=== PATIENT | female | born 1945 | race Caucasian/White ===

== ENCOUNTER 2016-07-16 15:03 | Observation (INO) | payer MEDICARE ==
[~2016-07-16] VITALS: Ht 165.1 cm; Wt 66.0 kg
[~2016-07-16 15:03] MED LIST: ADVA250A INH; ASPI81TA82 PO; CALC500T21 OR; LEVO100T60 PO; LISI10TA PO; LOVA1TAB47 PO; METHO500 PO; OXYC1SOL5 PO; PERC5TAB12 PO; PERC7.5T13 PO; PRED20 PO; TAB-TAB PO; VENTAER INH; ZOVI200C24 PO
[2016-07-16 15:04] VITALS: BP 127/85; PULSE 98; RESP 18; TEMP 98.2; O2SAT 100
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
--- NOTE | 2016-07-16 17:24 | RADRPT ---
EXAM DATE/TIME: 07/16/2016 17:16 [facility] COMPARISON: CT ABDOMEN & PELVIS W CONTRAST, January 17, 2016, 20:57. INDICATIONS : Abdominal pain. MEDICAL HISTORY : None. SURGICAL HISTORY : Cholecystectomy. ENCOUNTER: Initial ACUITY: 3 days PAIN SCORE: 10/10 LOCATION: Bilateral lower quadrant abdomen. FINDINGS: Supine and upright views of the abdomen were performed. The abdominal bowel gas pattern is nonspecif ic and unchanged with small amount of air in mid abdominal small bowel loops nondilated. No air flui d levels are seen. No abnormal masses, calcifications, or organomegaly is seen. The visualized lowe r lungs are clear. No evidence of free intraperitoneal gas. The osseous structures are unremarkable . Clips in place prior cholecystectomy CONCLUSION: Prior cholecystectomy. Nonspecific probable benign bowel gas pattern Jeff Marshall MD on July 16, 2016 at 17:22 Board Certified Radiologist. This report was verified electronically.
[2016-07-16 18:34] LABS: AUTOMATED NEUTROPHIL # 5.5 TH/MM3 (1.8-7.7); BASOPHIL % 0.5 % (0.0-2.0); EOSINOPHIL # 0.1 TH/MM3 (0-0.4); HEMATOCRIT 43.4 % (35.0-46.0); HEMO FLAGS DIFF FINAL; LYMPH % 11.6 % (9.0-44.0); LYMPHOCYTE # 0.8 TH/MM3 (1.0-4.8); MEAN CELL VOLUME 98.5 FL (80.0-100.0); MEAN CORPUSCULAR HEMOGLOBIN 33.8 PG (27.0-34.0); MEAN CORPUSCULAR HGB CONC 34.3 % (32.0-36.0); MONO % 7.6 % (0.0-8.0); NEUT % 78.3 % (16.0-70.0); PLATELET COUNT 214 TH/MM3 (150-450); RED BLOOD COUNT 4.41 MIL/MM3 (4.00-5.30); RED CELL DISTRIBUTION WIDTH 12.4 % (11.6-17.2)
[2016-07-16 18:47] LABS: APTT (PATIENT) 28.9 SEC (24.3-30.1); PROTHROMBIN TIME - PATIENT 10.9 SEC (9.8-11.6)
[2016-07-16 18:57] LABS: ANION GAP 10 MEQ/L (5-15); AST (GOT) 44 U/L (15-37); BLOOD UREA NITROGEN 16 MG/DL (7-18); CHLORIDE 98 MEQ/L (98-107); GLOMERULAR FILTRATION RATE 61 ML/MIN (>89); POTASSIUM 3.4 MEQ/L (3.5-5.1); SODIUM (NA) 136 MEQ/L (136-145)
[2016-07-16 19:01] LABS: ALKALINE PHOSPHATASE 70 U/L (45-117); ALT (GPT) 41 U/L (10-53); TOTAL BILIRUBIN ADULT 0.5 MG/DL (0.2-1.0)
[2016-07-16 19:13] LABS: BACTERIA, URINE RARE /hpf; BLOOD, URINE SMALL (NEG); COMMENT (UR) CULTURE INDICATED; CULTURE IF INDICATED CULTURE INDICATED; GLUCOSE,URINE NEG (NEG); HYALINE CAST, URINE 1 /lpf (RARE); KETONE, URINE 10 mg/dL (NEG); MUCUS URINE FEW /lpf (OCC); NITRITE,URINE NEG (NEG); PH, URINE 5.5 (5.0-8.5); SQUAMOUS EPITHELIAL CELL URINE 12 /hpf (0-5); URINE COLOR YELLOW (YELLW/STRAW)
[2016-07-16] MEDS ORDERED: ONDANSETRON HCL 4 MG/2 ML VIAL IV PUSH ONE (19:15)
[2016-07-16] MEDS ORDERED: MORPHINE SULFATE 4 MG/ML INJ IV PUSH ONE (19:15)
[2016-07-16] MEDS ORDERED: SODIUM CHLOR 0.9% 1000 ML INJ 1,000 ML IV ONE (19:15)
--- NOTE | 2016-07-16 19:27 | PD ---
Physical Exam Narrative Patient was initially seen in triage. Please see present provider's documentation for full H&P. Briefly this is a 62-year-old female comes complaining of lower abdominal pain and watery diarrhea 3 days. Patient reports improvement of pain when using a heating pad. Denies anything making the pain worse. Patient denies any urinary symptoms. Patient describes pain as menstrual cramping sensation. Patient has a history of hysterectomy, appendectomy, and cholecystectomy. Patient has associated nausea but denies any vomiting with this. Denies any blood in stool, dark stool, or recent antibiotic use. GENERAL: Well-developed, overly nourished, in no acute distress, and non-ill appearing. SKIN: Warm and dry. HEAD: Atraumatic. Normocephalic. EYES: Pupils equal and round. EOMI. No scleral icterus. No injection or drainage. ENT: No nasal bleeding or discharge. Mucous membranes pink and moist. NECK: Trachea midline. Supple. No nuclear rigidity. CARDIOVASCULAR: Regular rate and rhythm. No murmur appreciated. RESPIRATORY: No accessory muscle use. No respiratory distress. GASTROINTESTINAL: Abdomen soft, tender throughout lower abdomen, nondistended. Hepatic and splenic margins not palpable. Normal bowel sounds 4. No pulsatile mass. MUSCULOSKELETAL: No obvious deformities. No clubbing. No cyanosis. No edema. Full range of motion. NEUROLOGICAL: Awake and alert. No obvious cranial nerve deficits. Motor grossly within normal limits. Normal speech. PSYCHIATRIC: Appropriate mood and affect; insight and judgment normal. Data Data Last Documented VS Vital Signs Date Time Temp Pulse Resp B/P Pulse Ox O2 Delivery O2 Flow Rate FiO2 07/16/16 20:09 17 07/16/16 20:09 85 129/70 99 Room Air 07/16/16 15:04 98.2 Orders Complete Blood Count With Diff (07/16/16 17:02) Comprehensive Metabolic Panel (07/16/16 17:02) Lipase (07/16/16 17:02) Prothrombin Time / Inr (Pt) (07/16/16 17:02) Act Partial Throm Time (Ptt) (07/16/16 17:02) Urinalysis - C+S If Indicated (07/16/16 17:02) Abdomen, Flat & Upright (07/16/16 ) Electrocardiogram (07/16/16 17:02) Ondansetron Inj (Zofran Inj) (07/16/16 19:15) Morphine Inj (Morphine Inj) (07/16/16 19:15) Sodium Chlor 0.9% 1000 Ml Inj (Ns 1000 M (07/16/16 19:15) Urine Culture (07/16/16 17:30) Ct Abd/Pel W Iv Contrast(Rout) (07/16/16 ) Ceftriaxone Inj (Rocephin Inj) (07/16/16 19:30) Iohexol 350 Inj (Omnipaque 350 Inj) (07/16/16 21:38) Ketorolac Inj (Toradol Inj) (07/16/16 22:30) Labs Laboratory Tests Test 07/16/16 07/16/16 17:30 17:35 Urine Color YELLOW Urine Turbidity HAZY Urine pH 5.5 Urine Specific [place] 1.028 Urine Protein 30 mg/dL Urine Glucose (UA) NEG mg/dL Urine Ketones 10 mg/dL Urine Occult Blood SMALL Urine Nitrite NEG Urine Bilirubin NEG Urine Urobilinogen LESS THAN 2.0 MG/DL Urine Leukocyte Esterase LARGE Urine RBC 3 /hpf Urine WBC 19 /hpf Urine Squamous Epithelial 12 /hpf Cells Urine Bacteria RARE /hpf Urine Hyaline Casts 1 /lpf Urine Mucus FEW /lpf Microscopic Urinalysis Comment CULTURE INDICATED White Blood Count 7.0 TH/MM3 Red Blood Count 4.41 MIL/MM3 Hemoglobin 14.9 GM/DL Hematocrit 43.4 % Mean Corpuscular Volume 98.5 FL Mean Corpuscular Hemoglobin 33.8 PG Mean Corpuscular Hemoglobin 34.3 % Concent Red Cell Distribution Width 12.4 % Platelet Count 214 TH/MM3 Mean Platelet Volume 8.0 FL Neutrophils (%) (Auto) 78.3 % Lymphocytes (%) (Auto) 11.6 % Monocytes (%) (Auto) 7.6 % Eosinophils (%) (Auto) 2.0 % Basophils (%) (Auto) 0.5 % Neutrophils # (Auto) 5.5 TH/MM3 Lymphocytes # (Auto) 0.8 TH/MM3 Monocytes # (Auto) 0.5 TH/MM3 Eosinophils # (Auto) 0.1 TH/MM3 Basophils # (Auto) 0.0 TH/MM3 CBC Comment DIFF FINAL Differential Comment Prothrombin Time 10.9 SEC Prothromb Time International 1.0 RATIO Ratio Activated Partial 28.9 SEC Thromboplast Time Sodium Level 136 MEQ/L Potassium Level 3.4 MEQ/L Chloride Level 98 MEQ/L Carbon Dioxide Level 28.0 MEQ/L Anion Gap 10 MEQ/L Blood Urea Nitrogen 16 MG/DL Creatinine 0.91 MG/DL Estimat Glomerular Filtration 61 ML/MIN Rate Random Glucose 96 MG/DL Calcium Level 8.6 MG/DL Total Bilirubin 0.5 MG/DL Aspartate Amino Transf 44 U/L (AST/SGOT) Alanine Aminotransferase 41 U/L (ALT/SGPT) Alkaline Phosphatase 70 U/L Total Protein 8.6 GM/DL Albumin 3.7 GM/DL Lipase 135 U/L MDM Supervised Visit with VENITA: No Interpretation(s) EKG reviewed by Dr. Rivera, shows sinus rhythm with ventricular rate of 88. No STEMI. Differential Diagnosis Diverticulitis, gastritis, colitis, UTI, other Narrative Course Patient was seen and examined. Initial laboratory radiological studies were obtained and reviewed. Discussed patient with Dr. Benavides recommends having patient admitted to the hospital for further evaluation of a partial small bowel obstruction versus ileus. Discussed all findings and plan care of patient , who is agreeable for admission. Physician Communication Physician Communication [phone] Balderas, who is agreeable to admit the patient. Diagnosis Primary Impression: Ileus Additional Impression: UTI (urinary tract infection) Qualified Code: N39.0 - Urinary tract infection without hematuria, site unspecified Admitting Information Admitting Physician Requests: Observation Condition: Stable Sinan Shanks Jul 16, 2016 19:27
[2016-07-16] MEDS ORDERED: cefTRIAXone INJ 1,000 MG in SODIUM CHLORIDE 0.9% INJ 100 ML IV ONE (19:30)
[2016-07-16 20:09] VITALS: BP 129/70; PULSE 85; RESP 18; O2SAT 99
[2016-07-16] MEDS ORDERED: IOHEXOL 350 MG/ML 10 ML VIAL (for RAD DIAG) IV ONE (21:38)
[2016-07-16] MEDS ORDERED: KETOROLAC TROMETHAMINE 30 MG/ML (IVP) VIAL IV PUSH ONE (22:30)
--- NOTE | 2016-07-16 22:34 | RADRPT ---
EXAM DATE/TIME: 07/16/2016 21:22 [facility] COMPARISON: CT THORAX W/O CONTRAST, January 17, 2016, 16:01. INDICATIONS : Abdominal pain and diarrhea for three days. IV CONTRAST: 95 cc Omnipaque 350 (iohexol) IV ORAL CONTRAST: No oral contrast ingested. RADIATION DOSE: 16.14 CTDIvol (mGy) MEDICAL HISTORY : None SURGICAL HISTORY : Cholecystectomy. Hysterectomy. ENCOUNTER: Initial ACUITY: 1 day PAIN SCALE: 8/10 LOCATION: Bilateral lower quadrant TECHNIQUE: Volumetric scanning of the abdomen and pelvis was performed. Using automated exposure control and adjustment of the mA and/or kV according to patient size, radiation dose was kept as low as reasonably achievable to obtain optimal diagnostic quality images. FINDINGS: There is 11 mm nodule in the right lower lobe medially which is similar to previous measurement of 12 mm and December 2015. There is heterogeneous appearance of the liver characteristic of fatty infiltration similar to prior examination. Spleen, adrenals, kidneys and pancreas unremarkable. Cholecystectomy. Examination of the lower abdomen and pelvis reveals several thickened loops of small bowel as well as dilated small bowel loops to 3.6 cm with small air-fluid levels. There is distal decompression. Smal l amount of free fluid in the pelvis. No free air. Numerous surgical clips in the inguinal regions bilaterally. CONCLUSION: Abnormally thickened loops of small bowel in the lower abdomen. Differential diagnosis includes an en teritis. There is associated small bowel dilatation with distal decompression. Differential diagnosis includes localized ileus versus partial or early obstruction. No free air. Small amount of free flui d in the pelvis. Gato Leahy MD on July 16, 2016 at 22:27 Board Certified Radiologist. This report was verified electronically.
[2016-07-16] MEDS ORDERED: SODIUM CHLOR 0.9% 1000 ML INJ 1,000 ML IV SCH (23:35)
[2016-07-16] MEDS ORDERED: SODIUM CHLORIDE 0.9% FLUSH 5 ML FLUSH FLUSH PRN (23:45)
[2016-07-16] MEDS ORDERED: MAGNESIUM HYDROXIDE SUSP 30 ML CUP PO PRN (23:45)
[2016-07-16] MEDS ORDERED: ACETAMINOPHEN 325 MG TAB PO PRN (23:45)
[2016-07-16] MEDS ORDERED: ONDANSETRON HCL 4 MG/2 ML VIAL IVP PRN (23:45)
[2016-07-17 01:06] VITALS: BP 147/71; PULSE 89; RESP 18; O2SAT 99
[2016-07-17] MEDS ORDERED: ENOXAPARIN SODIUM 40 MG/0.4 ML SYRINGE SQ SCH (01:15)
--- NOTE | 2016-07-17 01:56 | HHI.HP ---
HPI Service [facility] Primary Care Physician Kia Garduno DO Admission Diagnosis ileus, UTI Diagnoses: (1) Abdominal pain (2) Enteritis (3) Ileus (4) UTI (urinary tract infection) (5) Hypokalemia (6) COPD (chronic obstructive pulmonary disease) (7) Hypothyroidism (8) Hypertension Chief Complaint: Abdominal pain x 3 days Travel History International Travel<30 Days: No Contact w/Intl Traveler <30 Da: No Traveled to Known Affected Are: No History of Present Illness Ms. Hay is a 70 year-old female with PMH of arthritis, hyperlipidemia, COPD , hypertension, and asthma who presented to the ER on 07/16/15 with complaint of lower abdominal pain progressively worsening accompanied by multiple episodes of watery diarrhea over the past 3 days. Abdomen/pelvis CT with abnormally thickened loops of small bowel in the lower abdomen. Small bowel dilatation with distal decompression. Differential includes enteritis, ileus vs partial or early obstruction. No free air. Small amount of free fluid in the pelvis. Abdomen x-ray with prior cholecystectomy, nonspecific probable benign bowel gas pattern. CBC unremarkable. K+ low at 3.4. Urinalysis abnormal with culture indicated. The patient is seen in the emergency room. She states that over the past 3 days she has had severe lower abdominal pain described as a "cramping" and occurring intermittently with no relation that she can remember to other symptom of diarrhea or to eating. She reports relief with medications given in the emergency room. She denies vomiting but reports some mild nausea. She states that her stool had been yellow liquid and occurring every 30 minutes to every hour with a duration of 3 days but reports that these symptoms ended today. She states that she's had no episodes of diarrhea since 10 AM on 07/16 but the intermittent abdominal pain has persisted though she thinks it is getting better in terms of being less frequent and less severe since arriving at the hospital. She denies any fever or chills but reports her appetite has been decreased. She denies bloody or black stools. She reports a chronic shortness of breath related to asthma that has not increased and denies cough. She denies hematuria, dysuria, and frequency. . Review of Systems Constitutional: COMPLAINS OF: Change in appetite (decreased with illness), DENIES: Fever, Chills Respiratory: COMPLAINS OF: Shortness of breath (chronic with no recent increase in symptom), DENIES: Cough Gastrointestinal: COMPLAINS OF: Abdominal pain, Diarrhea, Nausea, DENIES: Black stools, Bloody stools, Vomiting Genitourinary: DENIES: Urinary frequency, Hematuria, Dysuria Other all systems reviewed and are otherwise negative . Past Family Social History Past Medical History Hyperlipidemia COPD/Asthma Hypertension Hypothyroidism . Past Surgical History Cholecystectomy Hysterectomy . Reported Medications Albuterol inhaler 1 puff every 4 hours when necessary wheezing/shortness of breath Advair discus 250/50 g 1 inhalation only administers to self once daily ( though she states she knows she is supposed to take it twice a day) Lovastatin 20 mg by mouth daily at bedtime Laboratory and 100 g by mouth daily Lisinopril/hydrochlorothiazide 20 mg over 12.5 mg 1 tab by mouth daily Aspirin 81 mg by mouth daily Aleve one tablet PRN pain . Allergies: Coded Allergies: Zovirax (Verified Allergy, Severe, Hives, 07/17/16) Procardia (Verified Allergy, Intermediate, SWELLING, 07/17/16) Active Ordered Medications Current Medications Ondansetron HCl (Zofran Inj) 4 mg ONCE ONCE IV PUSH Last administered on 20:16; Start 07/16/16 at 19:15; Stop 07/16/16 at 19:16; Status DC Morphine Sulfate 2 mg 2 mg ONCE ONCE IV PUSH Last administered on 07/16/16 20 :16; Start 07/16/16 at 19:15; Stop 07/16/16 at 19:16; Status DC Sodium Chloride 1,000 ml @ 999 mls/hr BOLUS ONCE IV Last administered on 07/16 20:16; Start 07/16/16 at 19:15; Stop 07/16/16 at 20:15; Status DC Ceftriaxone Sodium/Sodium Chloride (Rocephin Inj/NS Inj) 100 ml @ 200 mls/hr ONCE ONCE IV Last administered on 07/16/16 20:17; Start 07/16/16 at 19:30; Stop 07/16/16 at 19:59; Status DC Iohexol (Omnipaque 350 Inj) 95 ml STK-MED ONCE IV Last administered on 21:38; Start 07/16/16 at 21:38; Stop 07/16/16 at 21:39; Status DC Ketorolac Tromethamine 15 mg 15 mg ONCE ONCE IV PUSH Last administered on 07/16 22:53; Start 07/16/16 at 22:30; Stop 07/16/16 at 22:31; Status DC Sodium Chloride (NS 1000 ml Inj) 1,000 ml @ 100 mls/hr Q10H IV Last administered on 07/17/16 00:11; Start 07/16/16 at 23:35; Status Hold IV Flush (NS Flush) 2 ml UNSCH PRN FLUSH FLUSH AFTER USING IV ACCESS; Start at 23:45 IV Flush (NS Flush) 2 ml BID FLUSH ; Start 07/17/16 at 09:00 Acetaminophen (Tylenol) 650 mg Q4H PRN PO TEMP > 100.4, pain 1 - 6; Start 07/16 at 23:45 Ondansetron HCl (Zofran Inj) 4 mg Q6H PRN IVP NAUSEA OR VOMITING; Start at 23:45 Magnesium Hydroxide (Milk Of Magnesia Liq) 30 ml Q12H PRN PO CONSTIPATION; Start 07/16/16 at 23:45 Enoxaparin Sodium 40 mg 40 mg Q24H SQ ; Start 07/17/16 at 01:15 Ceftriaxone Sodium/Sodium Chloride (Rocephin Inj/NS Inj) 100 ml @ 200 mls/hr Q24H IV ; Start 07/17/16 at 20:00 Potassium Bicarb/ Potassium Chloride (K-Lyte Cl Eff) 25 meq ONCE ONCE PO ; Start 07/17/16 at 02:00; Stop 07/17/16 at 02:01; Status DC Albuterol Sulfate (Albuterol Neb) 2.5 mg Q4HR NEB PRN NEB wheezing; Start 07/17 at 02:00 . Family History Mother with CO and hypertension- age of CO and known Half brother with CO Father with questionable history of brain aneurysm . Social History Tobacco: Smoked 1 pack per day from age 19 until age [age] - nonsmoker for 14 years Alcohol: Drinks 3-4 times per week; denies any history of alcohol withdrawal . Physical Exam Vital Signs Vital Signs Date Time Temp Pulse Resp B/P Pulse Ox O2 Delivery O2 Flow Rate FiO2 07/17/16 01:06 89 18 147/71 99 Room Air 07/16/16 20:09 17 07/16/16 20:09 85 18 129/70 99 Room Air 07/16/16 15:04 98.2 98 18 127/85 100 Physical Exam GENERAL: This is a well-nourished, well-developed patient, in no apparent distress. SKIN: No rashes, ecchymoses or lesions. Cool and dry. HEAD: Atraumatic. Normocephalic. EYES: No scleral icterus. No injection or drainage. ENT: Nose without bleeding, purulent drainage. NECK: Trachea midline. No JVD or lymphadenopathy. CARDIOVASCULAR: Regular rate and rhythm without murmurs, gallops, or rubs. RESPIRATORY: Clear to auscultation. Breath sounds equal bilaterally. No wheezes , rales, or rhonchi. GASTROINTESTINAL: Normally active bowel sounds. Abdomen soft, nondistended, tender right and left lower quadrants with deep palpation only. No guarding. MUSCULOSKELETAL: Extremities without clubbing, cyanosis, or edema. No calf tenderness. NEUROLOGICAL: Awake and alert. Motor and sensory grossly within normal limits. Normal speech. . Laboratory Laboratory Tests Test 07/16/16 07/16/16 17:30 17:35 Urine Color YELLOW Urine Turbidity HAZY Urine pH 5.5 Urine Specific [place] 1.028 Urine Protein 30 Urine Glucose (UA) NEG Urine Ketones 10 Urine Occult Blood SMALL Urine Nitrite NEG Urine Bilirubin NEG Urine Urobilinogen LESS THAN 2.0 Urine Leukocyte Esterase LARGE Urine RBC 3 Urine WBC 19 Urine Squamous Epithelial 12 Cells Urine Bacteria RARE Urine Hyaline Casts 1 Urine Mucus FEW Microscopic Urinalysis Comment CULTURE INDICATED White Blood Count 7.0 Red Blood Count 4.41 Hemoglobin 14.9 Hematocrit 43.4 Mean Corpuscular Volume 98.5 Mean Corpuscular Hemoglobin 33.8 Mean Corpuscular Hemoglobin 34.3 Concent Red Cell Distribution Width 12.4 Platelet Count 214 Mean Platelet Volume 8.0 Neutrophils (%) (Auto) 78.3 Lymphocytes (%) (Auto) 11.6 Monocytes (%) (Auto) 7.6 Eosinophils (%) (Auto) 2.0 Basophils (%) (Auto) 0.5 Neutrophils # (Auto) 5.5 Lymphocytes # (Auto) 0.8 Monocytes # (Auto) 0.5 Eosinophils # (Auto) 0.1 Basophils # (Auto) 0.0 CBC Comment DIFF FINAL Differential Comment Prothrombin Time 10.9 Prothromb Time International 1.0 Ratio Activated Partial 28.9 Thromboplast Time Sodium Level 136 Potassium Level 3.4 Chloride Level 98 Carbon Dioxide Level 28.0 Anion Gap 10 Blood Urea Nitrogen 16 Creatinine 0.91 Estimat Glomerular Filtration 61 Rate Random Glucose 96 Calcium Level 8.6 Total Bilirubin 0.5 Aspartate Amino Transf 44 (AST/SGOT) Alanine Aminotransferase 41 (ALT/SGPT) Alkaline Phosphatase 70 Total Protein 8.6 Albumin 3.7 Lipase 135 Date/Time Procedure Status Source Growth 07/16/16 17:30 Urine Culture Received Urine Clean Catch Pending Result Diagram: 07/16/16 1735 07/16/16 1735 Imaging Last Impressions Abdomen/Pelvis CT 07/16/16 0000 Signed Impressions: Service Date/Time: Saturday, July 16, 2016 21:22 - CONCLUSION: Abnormally thickened loops of small bowel in the lower abdomen. Differential diagnosis includes an enteritis. There is associated small bowel dilatation with distal decompression. Differential diagnosis includes localized ileus versus partial or early obstruction. No free air. Small amount of free fluid in the pelvis. Gato Leahy MD Abdomen X-Ray 07/16/16 0000 Signed Impressions: Service Date/Time: Saturday, July 16, 2016 17:16 - CONCLUSION: Prior cholecystectomy. Nonspecific probable benign bowel gas pattern Jeff Marshall MD Assessment and Plan Problem List: (1) Abdominal pain ICD Code: R10.9 Status: Acute (2) UTI (urinary tract infection) ICD Code: N39.0 Status: Acute (3) Enteritis ICD Code: K52.9 Status: Acute (4) Ileus ICD Code: K56.7 Status: Acute (5) COPD (chronic obstructive pulmonary disease) ICD Code: J44.9 Status: Chronic (6) Hypothyroidism ICD Code: E03.9 Status: Chronic (7) Hypertension ICD Code: I10 Status: Chronic (8) Hypokalemia ICD Code: E87.6 Status: Acute Assessment and Plan Ms. Hay is a 70 year-old female with PMH of arthritis, hyperlipidemia, COPD , hypertension, and asthma who presented to the ER on 07/16/15 with complaint of lower abdominal pain progressively worsening accompanied by watery diarrhea over the past 3 days. Abdomen/pelvis CT with abnormally thickened loops of small bowel in the lower abdomen. Small bowel dilatation with distal decompression. Differential includes enteritis, ileus vs partial or early obstruction. No free air. Small amount of free fluid in the pelvis. Abdomen x- ray with prior cholecystectomy, nonspecific probable benign bowel gas pattern. CBC unremarkable. K+ low at 3.4. Urinalysis abnormal with culture indicated. Abdominal pain with diarrhea - enteritis versus ileus versus partial small bowel obstruction - Abdomen/pelvis CT with abnormally thickened loops of small bowel in the lower abdomen. Small bowel dilatation with distal decompression. Differential includes enteritis, ileus vs partial or early obstruction. No free air. Small amount of free fluid in the pelvis. Abdomen x-ray with prior cholecystectomy, nonspecific probable benign bowel gas pattern. - Patient has been NPO since 10 a.m.; will start clear liquid diet at her request but she is aware we will need to resume nothing by mouth status if symptoms recur - We'll check stool for O&P and stool culture - We'll hold IV fluids for now - If symptoms continue improving, patient may be able to be discharged today or tomorrow Mild hypokalemia - Potassium 3.4 on admission - likely secondary to combination of diarrhea and diuretic antihypertensive - replace p.o. - will recheck in a.m. and replace if necessary Possible UTI - Urinalysis abnormal with culture indicated - Ceftriaxone 1 gm IV q24h - await urine culture results COPD - resume Advair - Albuterol nebulizer q4h PRN wheezing Hypothyroidism - Resume home levothyroxine Hypertension - resume home lisinopril/HCTZ - monitor trends in blood pressure and adjust medications if necessary DVT prophylaxis - Lovenox 40 mg subq q24h . Discussed Condition With patient and RN . Problem Qualifiers (1) UTI (urinary tract infection): Qualified Code: N39.0 - Urinary tract infection without hematuria, site unspecified Chrissy Perez Jul 17, 2016 01:56 Salomon Balderas DO Jul 24, 2016 13:03 Chrissy Perez Jul 17, 2016 01:56
[2016-07-17] MEDS ORDERED: RESP: ALBUTEROL 2.5 MG/3 ML NEB (PRN) NEB (02:00)
[2016-07-17] MEDS ORDERED: POTASSIUM CHLORIDE 25 MEQ EFFERVESCENT TAB PO ONE (02:00)
[2016-07-17 03:41] VITALS: BP 158/81; PULSE 85; RESP 18; O2SAT 95
[2016-07-17] MEDS ORDERED: ASPI1TAB69 PO (04:35)
[2016-07-17] MEDS ORDERED: ADVA250A INH (04:35)
[2016-07-17] MEDS ORDERED: LISI20TA PO (04:35)
[2016-07-17] MEDS ORDERED: CALCTAB23 PO (04:35)
[2016-07-17] MEDS ORDERED: LOVA20TA PO (04:35)
[2016-07-17] MEDS ORDERED: VENTAER INH (04:35)
[2016-07-17] MEDS ORDERED: MULT1TAB84 PO (04:35)
[2016-07-17] MEDS ORDERED: LEVO100T5 PO (04:35)
[2016-07-17 05:34] LABS: BASOPHIL % 0.5 % (0.0-2.0); EOSINOPHIL # 0.2 TH/MM3 (0-0.4); EOSINOPHIL % 2.7 % (0.0-4.0); HEMATOCRIT 36.7 % (35.0-46.0); HEMO FLAGS DIFF FINAL; LYMPH % 10.4 % (9.0-44.0); LYMPHOCYTE # 0.7 TH/MM3 (1.0-4.8); MEAN CELL VOLUME 98.2 FL (80.0-100.0); MEAN CORPUSCULAR HEMOGLOBIN 33.9 PG (27.0-34.0); MEAN CORPUSCULAR HGB CONC 34.5 % (32.0-36.0); MONO % 9.4 % (0.0-8.0); PLATELET COUNT 180 TH/MM3 (150-450); RED BLOOD COUNT 3.74 MIL/MM3 (4.00-5.30); RED CELL DISTRIBUTION WIDTH 12.1 % (11.6-17.2); WHITE BLOOD COUNT 6.5 TH/MM3 (4.0-11.0)
[2016-07-17] MEDS ORDERED: LEVOTHYROXINE SODIUM 100 MCG TAB PO SCH (06:00)
[2016-07-17 06:24] LABS: BICARBONATE 23.4 MEQ/L (21.0-32.0); POTASSIUM 3.3 MEQ/L (3.5-5.1)
[2016-07-17 06:45] LABS: CALCIUM-PROTEIN CORRECTED 7.6 MG/DL (8.5-10.1)
[2016-07-17] MEDS ORDERED: POTASSIUM CHLORIDE 20 MEQ CONTROLLED RELEASE TAB PO ONE (07:15)
[2016-07-17 07:37] VITALS: BP 150/70; PULSE 89; RESP 18; O2SAT 95
[2016-07-17] MEDS ORDERED: PRAVASTATIN SOD 20 MG TAB PO SCH (09:00)
[2016-07-17] MEDS ORDERED: MAGNESIUM SULFATE 1 GM PREMIX 100 ML IV ONE (09:00)
[2016-07-17] MEDS ORDERED: NON-FORMULARY DRUG (Lisinopril-Hctz 1 TAB) PO SCH (09:00)
[2016-07-17] MEDS ORDERED: BUDESONIDE-FORMOTEROL 160/4.5 MCG INHALER INH SCH (09:00)
[2016-07-17] MEDS ORDERED: HYDROCHLOROTHIAZIDE 25 MG TAB PO SCH (09:00)
[2016-07-17] MEDS ORDERED: LISINOPRIL 20 MG TAB PO SCH (09:00)
[2016-07-17] MEDS ORDERED: NON-FORMULARY DRUG (Fluticasone-Salmeterol Inh (Advair Diskus Inh) 1 PUFF) INH SCH (09:00)
[2016-07-17] MEDS ORDERED: ASPIRIN EC 81 MG TABEC PO SCH (09:00)
[2016-07-17] MEDS ORDERED: SODIUM CHLORIDE 0.9% FLUSH 5 ML FLUSH FLUSH SCH (09:00)
[2016-07-17 09:45] VITALS: BP 132/82; PULSE 87; RESP 20; O2SAT 95
--- NOTE | 2016-07-17 11:36 | HHI.PR ---
Subjective Remarks Follow up for diarrhea, abdominal pain, UTI. The patient reports feeling much better today. She did have some lower abdominal discomfort last night but this has now gone away. Denies any nausea/vomiting or fever/chills. She was able to tolerate her clear liquid meal this morning for breakfast and would like to try something more solid. Her last BM was yesterday morning, described as loose, but not diarrhea. Denies any dysuria, increased urinary frequency/urgency. Objective Vitals Vital Signs Date Time Temp Pulse Resp B/P Pulse Ox O2 Delivery O2 Flow Rate FiO2 07/17/16 09:45 87 20 132/82 95 Room Air 07/17/16 07:37 89 18 150/70 95 07/17/16 03:41 85 18 158/81 95 Room Air 07/17/16 01:06 89 18 147/71 99 Room Air 07/16/16 20:09 17 07/16/16 20:09 85 18 129/70 99 Room Air 07/16/16 15:04 98.2 98 18 127/85 100 Result Diagram: 07/17/16 0506 07/17/16 0506 Imaging Last Impressions Abdomen/Pelvis CT 07/16/16 0000 Signed Impressions: Service Date/Time: Saturday, July 16, 2016 21:22 - CONCLUSION: Abnormally thickened loops of small bowel in the lower abdomen. Differential diagnosis includes an enteritis. There is associated small bowel dilatation with distal decompression. Differential diagnosis includes localized ileus versus partial or early obstruction. No free air. Small amount of free fluid in the pelvis. Gato Leahy MD Abdomen X-Ray 07/16/16 0000 Signed Impressions: Service Date/Time: Saturday, July 16, 2016 17:16 - CONCLUSION: Prior cholecystectomy. Nonspecific probable benign bowel gas pattern Jeff Marshall MD Objective Remarks GENERAL: Well-nourished, well-developed female patient in [facility]. SKIN: Warm and dry. No rash. HEAD: Normocephalic. Atraumatic. EYES: Pupils equal and round. No scleral icterus. No injection or drainage. ENT: No nasal bleeding or discharge. Mucous membranes pink and moist. NECK: Supple. Trachea midline. CARDIOVASCULAR: Regular rate and rhythm. S1, S2 noted. No murmur appreciated. RESPIRATORY: No accessory muscle use. Clear to auscultation. Breath sounds equal bilaterally. GASTROINTESTINAL: Abdomen soft, non-tender, nondistended. Normoactive bowel sounds x4. MUSCULOSKELETAL: No obvious deformities. Extremities without clubbing, cyanosis , or edema. NEUROLOGICAL: Awake and alert. No obvious cranial nerve deficits. Motor grossly within normal limits. Normal speech. PSYCHIATRIC: Appropriate mood and affect; insight and judgment normal. Medications and IVs Current Medications Medications (Trade) Dose Ordered Sig/Pepe Route Start Time Stop Time Status Last Admin (NS 1000 ml Inj) 1,000 ml @ 100 mls/hr Q10H IV 07/16/16 23:35 Hold 07/17/16 00:11 (NS Flush) 2 ml UNSCH PRN FLUSH 07/16/16 23:45 (NS Flush) 2 ml BID FLUSH 07/17/16 09:00 07/17/16 09:59 (Tylenol) 650 mg Q4H PRN PO 07/16/16 23:45 (Zofran Inj) 4 mg Q6H PRN IVP 07/16/16 23:45 (Milk Of Magnmorris Liq) 30 ml Q12H PRN PO 07/16/16 23:45 Enoxaparin Sodium 40 mg 40 mg Q24H SQ 07/17/16 01:15 (Rocephin Inj/NS Inj) 100 ml @ 200 mls/hr Q24H IV 07/17/16 20:00 (Ecotrin Ec) 81 mg DAILY PO 07/17/16 09:00 07/17/16 09:59 (Synthroid) 100 mcg DAILY@06 PO 07/17/16 06:00 07/17/16 06:09 (Pravachol) 20 mg DAILY PO 07/17/16 09:00 07/17/16 09:59 (Prinivil) 20 mg DAILY PO 07/17/16 09:00 07/17/16 09:58 (Hydrodiuril) 12.5 mg DAILY PO 07/17/16 09:00 07/17/16 09:59 (Symbicort 160-4.5 Inh) 2 puff BID INH 07/17/16 09:00 Urinary Catheter: No Vascular Central Line Catheter: No A/P Problem List: (1) Abdominal pain ICD Code: R10.9 Status: Acute (2) Enteritis ICD Code: K52.9 Status: Acute (3) Ileus ICD Code: K56.7 Status: Acute (4) UTI (urinary tract infection) ICD Code: N39.0 Status: Acute (5) Hypokalemia ICD Code: E87.6 Status: Acute (6) COPD (chronic obstructive pulmonary disease) ICD Code: J44.9 Status: Chronic (7) Hypothyroidism ICD Code: E03.9 Status: Chronic (8) Hypertension ICD Code: I10 Status: Chronic Assessment and Plan 70-year-old female with PMH of arthritis, HLD, COPD/asthma, HTN, presented with complaint of lower abdominal pain progressively worsening accompanied by diarrhea over the past 3 days. Abdominal pain with diarrhea - suspected enteritis versus ileus - Abdomen/pelvis CT with abnormally thickened loops of small bowel in the lower abdomen. Small bowel dilatation with distal decompression. Differential includes enteritis, ileus vs partial or early obstruction. No free air. Small amount of free fluid in the pelvis. Abdomen x-ray with prior cholecystectomy, nonspecific probable benign bowel gas pattern. - Afebrile, no leukocytosis - Started on clear liquids, patient tolerated well, will advance to heart healthy diet. - Check stool for O&P and stool culture, however patient has not had recurrent diarrhea since prior to arrival - S/p IVF, will hold for now as patient tolerating oral intake. - If the patient tolerates her lunch, can likely discharge home today Mild hypokalemia/Hypomagnesemia - Potassium 3.4 on admission - likely secondary to combination of diarrhea and diuretic antihypertensive - replaced with p.o. KCl - still low today, give additional po KCl replacement - Mag 1.7, given IV Mag Sulfate x1G UTI: Urinalysis abnormal with culture indicated - Continue Ceftriaxone 1 gm IV q24h - await urine culture results COPD - resume Advair - Albuterol nebulizer q4h PRN wheezing Hypothyroidism - Resume home levothyroxine Hypertension - resume home lisinopril/HCTZ - monitor trends in blood pressure and adjust medications if necessary DVT prophylaxis - Lovenox 40 mg subq q24h Written by Dina Austin, acting as scribe for Dr. Galicia on 07/17/16 at 12:56. The documentation accurately reflects the work performed [id number] by me Dr Galicia on 07/17/16 at 12:56 Discharge Planning If patient tolerates her lunch, will likely discharge later today. Discharge patient to home Condition on discharge: Improved Heart Healthy Diet as tolerated Ad Marisel activity Rx written: Ceftin Follow-up with primary care physician within 1 week Problem Qualifiers (1) UTI (urinary tract infection): Qualified Code: N39.0 - Urinary tract infection without hematuria, site unspecified Dina Austin PA-C Jul 17, 2016 11:36 Ebonie Galicia MD Jul 17, 2016 21:18
--- NOTE | 2016-07-17 16:55 | EKG ---
Date Performed: 07/16/2016 Time Performed: 19:09:59 PTAGE: 70 years EKG: Sinus rhythm WITH FREQUENT SUPRAVENTRICULAR PREMATURE COMPLEXES Compared to prior tracing no significant change A BNORMAL RHYTHM ECG PREVIOUS TRACING : 01/18/2016 07.58 DOCTOR: Lashanda Adair Interpretating Date/Time 07/17/2016 16:52:38
[2016-07-17] MEDS ORDERED: LACTCHW3 CHEW (17:21)
[2016-07-17] MEDS ORDERED: CEFT250T8 PO (17:21)
[2016-07-17] MEDS ORDERED: cefTRIAXone INJ 1,000 MG in SODIUM CHLORIDE 0.9% INJ 100 ML IV SCH (20:00)
--- NOTE | 2016-07-17 21:24 | HHI.DCPOC ---
Discharge Care Plan Goals to Promote Your Health * To prevent worsening of your condition and complications * To maintain your health at the optimal level Directions to Meet Your Goals Take your medications as prescribed Follow your dietary instruction Follow activity as directed Keep your appointments as scheduled Take your immunizations and boosters as scheduled If your symptoms worsen call your PCP, if no PCP go to Urgent Care Center or Emergency Room Smoking is Dangerous to Your Health. Avoid second hand smoke Call the 24-hour hour crisis hotline for domestic abuse at Ebonie Galicia MD Jul 17, 2016 21:24
== END 2016-07-17 17:17 | disposition home or self-care (01) ==
LOC: NEPC 15:03 → NEDA 23:01 → NEDH 07-17 03:56 → UNDODEPER 07-18 03:43
PROVIDERS: ADMIT Hospitalist; ATTEND Hospitalist
DX: K52.9 Noninfective gastroenteritis and colitis, unspecified (principal); K56.7 Ileus, unspecified; N39.0 Urinary tract infection, site not specified; E78.5 Hyperlipidemia, unspecified; E87.6 Hypokalemia; I10 Essential (primary) hypertension; J44.9 Chronic obstructive pulmonary disease, unspecified; J45.909 Unspecified asthma, uncomplicated; E03.9 Hypothyroidism, unspecified; E83.42 Hypomagnesemia; E78.00 Pure hypercholesterolemia, unspecified; M19.90 Unspecified osteoarthritis, unspecified site; Z87.891 Personal history of nicotine dependence; Z90.710 Acquired absence of both cervix and uterus; Z90.49 Acquired absence of other specified parts of digestive tract
CPT/HCPCS: 74020; 74177; 80048; 80053; 81001; 83690; 83735; 84155; 85025; 85610; 85730; 87086; 93005; 96365; 96366; 96375; 99285; G0378; J0696; J1885; J2270; J2405; J3475; J7030; Q9967

== ENCOUNTER 2016-10-18 15:04 | Emergency (ER) | payer MEDICARE ==
[~2016-10-18] VITALS: Ht 165.1 cm; Wt 76.5 kg
[~2016-10-18 15:04] MED LIST changes: +ASPI1TAB69 PO; -ASPI81TA82 PO; -CALC500T21 OR; +CALCTAB23 PO; +CEFT250T8 PO; +LACTCHW3 CHEW; +LEVO100T5 PO; -LEVO100T60 PO; -LISI10TA PO; +LISI20TA PO; -LOVA1TAB47 PO; +LOVA20TA PO; -METHO500 PO; +MULT1TAB84 PO; -OXYC1SOL5 PO; -PERC5TAB12 PO; -PERC7.5T13 PO; -PRED20 PO; -TAB-TAB PO; -ZOVI200C24 PO
[2016-10-18 15:07] VITALS: BP 165/86; PULSE 107; RESP 15; TEMP 98.5; O2SAT 98
[2016-10-18 16:34] VITALS: BP 142/86; PULSE 90; RESP 18; O2SAT 98
[2016-10-18] MEDS ORDERED: SODIUM CHLORIDE 0.9% FLUSH 10 ML FLUSH IVF PRN (17:00)
[2016-10-18 17:08] VITALS: O2SAT 98
[2016-10-18 17:36] LABS: BASOPHIL % 0.5 % (0.0-2.0); EOSINOPHIL # 0.3 TH/MM3 (0-0.4); EOSINOPHIL % 4.3 % (0.0-4.0); HEMATOCRIT 38.5 % (35.0-46.0); HEMO FLAGS DIFF FINAL; LYMPH % 13.7 % (9.0-44.0); LYMPHOCYTE # 1.1 TH/MM3 (1.0-4.8); MEAN CELL VOLUME 98.2 FL (80.0-100.0); MEAN CORPUSCULAR HEMOGLOBIN 33.4 PG (27.0-34.0); MONO % 6.6 % (0.0-8.0); NEUT % 74.9 % (16.0-70.0); PLATELET COUNT 247 TH/MM3 (150-450); RED BLOOD COUNT 3.92 MIL/MM3 (4.00-5.30); RED CELL DISTRIBUTION WIDTH 12.6 % (11.6-17.2)
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
[2016-10-18 17:57] LABS: ANION GAP 9 MEQ/L (5-15)
[2016-10-18 17:58] LABS: ALKALINE PHOSPHATASE 63 U/L (45-117); ALT (GPT) 41 U/L (10-53); AST (GOT) 48 U/L (15-37); BICARBONATE 28.9 MEQ/L (21.0-32.0); BLOOD UREA NITROGEN 17 MG/DL (7-18); CHLORIDE 99 MEQ/L (98-107); GLOMERULAR FILTRATION RATE 58 ML/MIN (>89); POTASSIUM 4.5 MEQ/L (3.5-5.1); SODIUM (NA) 137 MEQ/L (136-145); TOTAL BILIRUBIN ADULT 0.4 MG/DL (0.2-1.0)
[2016-10-18 18:00] VITALS: BP 152/80; PULSE 79; RESP 18; O2SAT 98
[2016-10-18 18:00] LABS: APTT (PATIENT) 27.8 SEC (24.3-30.1); PROTHROMBIN TIME - PATIENT 10.7 SEC (9.8-11.6)
--- NOTE | 2016-10-18 18:18 | RADRPT ---
EXAM DATE/TIME: 10/18/2016 18:03 [facility] COMPARISON: No previous studies available for comparison. INDICATIONS : Right ankle pain after trip and fall. MEDICAL HISTORY : None. SURGICAL HISTORY : None. ENCOUNTER: Initial ACUITY: 2 days PAIN SCORE: 3/10 LOCATION: Right lateral ankle. FINDINGS: No definite fractures, or dislocations are identified. No definite lytic or sclerotic lesion is seen . Slight osteopenia is seen. Calcaneal spur is present at the attachment site of the plantar aponeur osis. CONCLUSION: Chronic changes and no evidence for acute fracture. Shereen De La Cruz MD on October 18, 2016 at 18:16 Board Certified Radiologist. This report was verified electronically.
--- NOTE | 2016-10-18 18:26 | RADRPT ---
EXAM DATE/TIME: 10/18/2016 18:11 [facility] COMPARISON: CT BRAIN W/O CONTRAST, January 17, 2016, 16:01. INDICATIONS : Fall-altered mental status, left eye bruising RADIATION DOSE: 56.35 CTDIvol (mGy) MEDICAL HISTORY : Hypertension. Cardiovascular disease Asthma. SURGICAL HISTORY : None. ENCOUNTER: Initial ACUITY: 1 day PAIN SCALE: 5/10 LOCATION: cranial TECHNIQUE: Multiple contiguous axial images were obtained of the head. Using automated exposure control and adj ustment of the mA and/or kV according to patient size, radiation dose was kept as low as reasonably a chievable to obtain optimal diagnostic quality images. FINDINGS: There is no evidence for intracranial hemorrhage, mass effect, mass lesions, or edema. The visualize d bony structures appear intact. Slight degree of brain atrophy is seen. Slight periventricular whit e matter changes are seen nonspecific mostly consistent with chronic small vessel ischemic changes. There are no signs of acute infarction for technique. CONCLUSION: Slight atrophic and small vessel ischemic changes without any evidence for acute hemorrhage or mass effect. Shereen De La Cruz MD on October 18, 2016 at 18:23 Board Certified Radiologist. This report was verified electronically.
--- NOTE | 2016-10-18 18:32 | RADRPT ---
EXAM DATE/TIME: 10/18/2016 18:13 [facility] COMPARISON: No previous studies available for comparison. INDICATIONS : Fall RADIATION DOSE: 23.61 CTDIvol (mGy) MEDICAL HISTORY : Hypertension. Cardiovascular disease SURGICAL HISTORY : Hysterectomy. ENCOUNTER: Initial ACUITY: 1 day PAIN SCALE: 4/10 LOCATION: neck TECHNIQUE: Volumetric scanning of the cervical spine was performed. Multiplanar reconstructions in the sagittal, coronal and oblique axial planes were performed. Using automated exposure control and adjustment o f the mA and/or kV according to patient size, radiation dose was kept as low as reasonably achievable to obtain optimal diagnostic quality images. FINDINGS: No evidence of subluxation. No definite fracture is seen for technique. C2-C3: Mild central disc protrusion is present without any significant compromise to the thecal sac or the e xiting nerve roots. C3-C4: Mild central disc protrusion is present without any significant compromise to the thecal sac or the e xiting nerve roots. C4-C5: Significant degenerative changes are seen within the disc space and facets. Slight bulging disc and h ypertrophic changes are seen with indentation on the thecal sac and no significant compromise to the thecal sac or the exiting nerve roots. C5-C6: Significant degenerative changes are seen within the disc space and facets. Slight bulging disc and h ypertrophic changes are seen with indentation on the thecal sac and no significant compromise to the thecal sac or the exiting nerve roots. C6-C7: Significant degenerative changes are seen within the disc space and facets. Slight bulging disc and h ypertrophic changes are seen with indentation on the thecal sac and no significant compromise to the thecal sac or the exiting nerve roots. C7-T1: There is no evidence for any significant compromise to the thecal sac, or the exiting nerve roots. N o appreciable thecal sac stenosis is seen. The neural foramina and lateral recess appear patent bila terally. CONCLUSION: Degenerative spondylosis without any significant compromise to the thecal sac or the exiting nerve ro ots. Shereen De La Cruz MD on October 18, 2016 at 18:24 Board Certified Radiologist. This report was verified electronically.
--- NOTE | 2016-10-18 18:35 | RADRPT ---
EXAM DATE/TIME: 10/18/2016 18:14 [facility] COMPARISON: CT BRAIN W/O CONTRAST, October 18, 2016, 18:11. INDICATIONS : Fall, left eye bruising RADIATION DOSE: 21.96 CTDIvol (mGy) MEDICAL HISTORY : Hypertension. Cardiovascular disease Asthma. SURGICAL HISTORY : None. ENCOUNTER: Initial ACUITY: 1 day PAIN SCORE: 5/10 LOCATION: Left facial TECHNIQUE: Volumetric scanning of the facial bones was performed. Using automated exposure control and adjustme nt of the mA and/or kV according to patient size, radiation dose was kept as low as reasonably achiev able to obtain optimal diagnostic quality images. FINDINGS: No definite fractures, or dislocations are identified. No definite lytic or sclerotic lesion is seen . There is a slight focal hematoma in the superolateral portion of the left orbit in the subcutaneous tissues measuring 1.9 cm in size with pre-septal swelling. There is no post-septal extension. Minima l mucosal swelling is seen within some of the ethmoid air cells. CONCLUSION: Soft tissue hematoma no definite fracture. Shereen De La Cruz MD on October 18, 2016 at 18:30 Board Certified Radiologist. This report was verified electronically.
== END 2016-10-18 19:59 | disposition home or self-care (01) ==
LOC: NEPD 15:04
DX: S00.83XA Contusion of other part of head, initial encounter (principal); W19.XXXA Unspecified fall, initial encounter; Z79.899 Other long term (current) drug therapy
CPT/HCPCS: 70450; 70486; 72125; 73610; 80053; 80307; 85025; 85610; 85730

== ENCOUNTER 2017-06-10 00:24 | Inpatient (IN) | payer MEDICARE ==
[~2017-06-10] VITALS: Ht 167.6 cm; Wt 75.9 kg
[2017-06-10] VITALS (14 sets, daily range): BP systolic 107–211; BP diastolic 63–110; PULSE 84–112; RESP 11–27; TEMP 97.7–98.9; O2SAT 98–100
[~2017-06-10 00:24] MED LIST changes: -CEFT250T8 PO
[2017-06-10] MEDS ORDERED: PROPOFOL 500 MG/50 ML INJ 50 ML ONE (00:27)
[2017-06-10] MEDS ORDERED: MIDAZOLAM HCL 5 MG/ML VIAL (1 ML) IV PUSH ONE (00:30)
[2017-06-10] MEDS ORDERED: SODIUM CHLOR 0.9% 1000 ML INJ 1,000 ML IV ONE (00:30)
[2017-06-10] MEDS ORDERED: PROPOFOL 1000 MG/100 ML INJ 100 ML IV PRN ×2 (00:30→03:30)
[2017-06-10] MEDS ORDERED: SODIUM CHLORIDE 0.9% FLUSH 10 ML FLUSH IVF PRN ×2 (00:30)
--- NOTE | 2017-06-10 00:40 | PD ---
HPI Chief Complaint: shortness of breath Time Seen by Provider: 00:29 Travel History International Travel<30 days: No Contact w/Intl Traveler<30days: No History of Present Illness HPI The patient is a 71 year old female who presents to the [facility] emergency department with a history of shortness of breath that suddenly began prior to arrival. The patient was so dyspneic upon ambulance services arrival she was not able to provide much history. According to bystanders the patient does have an allergy to animals and there were several animals in the home. According to ambulance services the patient had been drinking alcohol this evening. The patient then developed sudden onset of shortness of breath. The patient reports that she does have a history of asthma. She denies any prior history of smoking. Ambulance services reported that the patient had stridor. IV access was obtained and the patient was given 50 mg of Benadryl and 0.3 mg of epinephrine due to a concern about the cause being an allergic reaction. The patient had brief improvement and then recurrence of stridor. The patient had a decline in her mentation. The patient was prepped for intubation. The patient was given 4 mg of Ativan IV, 20 mg of etomidate. The patient was intubated with an 8 size endotracheal tube. The patient's blood sugar prior to arrival was 132. The patient was given Solu-Medrol 125 mg IV. The patient arrived at this facility, moving all extremities, purposeful and that she attempts to touch the endotracheal tube. Review of systems is otherwise unable to be obtained as the patient is currently intubated. The patient's history is obtained from reviewing the electronic medical record. [facility] Past Medical History Narrative Medical The patient's past medical history is significant for asthma, COPD, hyperlipidemia, hypertension, arthritis. Arthritis: Yes Cardiovascular Problems: Yes High Cholesterol: Yes COPD: Yes Diminished Hearing: No Hypertension: Yes Respiratory: Yes (ASTHMA) Triglycerides - High: Yes Menopausal: Yes Past Surgical History Narrative Surgical The patient's past surgical history is significant for varicose vein surgery, hysterectomy, appendectomy, cholecystectomy. Appendectomy: Yes Cholecystectomy: Yes Hysterectomy: Yes Other Surgery: Yes (VARICOSE VEINS TWICE) Social History Alcohol Use: Yes (ONE OR TWO DAILY ) Tobacco Use: No Substance Use: No Allergies-Medications (Allergen,Severity, Reaction): Coded Allergies: acyclovir (Unverified Allergy, Severe, Hives, 02/05/17) nifedipine (Unverified Allergy, Intermediate, SWELLING, 02/05/17) Reported Meds & Prescriptions Reported Meds & Active Scripts Active Lactinex (Lactobacillus Acidophilus) 1 Chew 1 Tab CHEW DAILY Reported Lovastatin 20 Mg Tab 20 Mg PO DAILY Lisinopril-Hctz 20-12.5 Mg Tab 1 Tab PO DAILY Levothyroxine (Levothyroxine Sodium) 100 Mcg Tab 100 Mcg PO DAILY Advair Diskus Inh (Fluticasone-Salmeterol Inh) 250-50 Mcg/Blist Aer 1 Puff INH BID Rinse mouth after use. Multivitamin Adults (Multiple Vitamins W/ Minerals) 1 Tab 1 Tab PO DAILY Calcium 500 + D (Calcium Carbonate-Vitamin D) 500-125 Mg-Unit Tab 1 Tab PO DAILY Ventolin Hfa 18 GM Inh (Albuterol Sulfate) 90 Mcg/Act Aer 90 Puff INH Q4H PRN Aspirin 81 Mg Tabdr 81 Mg PO DAILY Review of Systems ROS Limitations: Intubated Respiratory: Positive: Shortness of Breath Physical Exam Narrative General: The patient is well-developed well-nourished female, intubated prior to arrival , moving all extremities, attempting to remove her endotracheal tube. Head and Neck exam: Head is normocephalic atraumatic. Eyes: Extra ocular motion testing is unable to be accomplished in this patient that it is not following commands at this time. Pupils are equal round and reactive to light. Pupils are 3 mm bilaterally. Nose: Midline septum with pink mucous membranes Mouth: Dentition unremarkable. Moist mucus membranes. Posterior oropharynx is not erythematous. No tonsillar hypertrophy. Uvula midline. Airway patent. Neck: No palpable lymphadenopathy. No nuchal rigidity. No thyromegaly. Cardiovascular: Sinus tachycardia in the low 100s without murmurs, gallops, or rubs. No pulse deficit to the extremities on simultaneous auscultation and palpation of her radial artery. Lungs: Expiratory wheezes audible throughout bilateral lung elmore. No rhonchi. No crackles. Abdomen: Soft, without tenderness to palpation in all 4 quadrants of the abdomen. No guarding, rebound, or rigidity. Normal bowel sounds are audible. No tenderness on palpation of McBurney's point. Extremities: No clubbing, cyanosis, or edema. 2+ pulses in all 4 extremities. Neurologic Exam: The patient is uncooperative with formal neurologic testing. GCS is noted to be 8. Eyes- 1. Motor-6, Voice-1, however she is intubated. -6 Skin Exam: No rash noted. Intact skin that is warm and dry. Data Data Last Documented VS Vital Signs Date Time Temp Pulse Resp B/P (MAP) Pulse Ox O2 Delivery O2 Flow Rate FiO2 06/10/17 01:16 99 Ventilator 30 06/10/17 01:16 102 16 163/97 (119) 30.00 06/10/17 00:28 97.7 Orders Orders Propofol 500 Mg/50 Ml Inj (Diprivan 500 (06/10/17 00:27) Complete Blood Count With Diff (06/10/17 00:30) Comprehensive Metabolic Panel (06/10/17 00:30) B-Type Natriuretic Peptide (06/10/17 00:30) Act Partial Throm Time (Ptt) (06/10/17 00:30) Prothrombin Time / Inr (Pt) (06/10/17 00:30) Magnesium (Mg) (06/10/17 00:30) Ckmb (Isoenzyme) Profile (06/10/17 00:30) Troponin I (06/10/17 00:30) Arterial Blood Gas (Abg) (06/10/17 00:30) Urinalysis - C+S If Indicated (06/10/17 00:30) Iv Access Insert/Monitor (06/10/17 00:30) Electrocardiogram (06/10/17 00:30) Ecg Monitoring (06/10/17 00:30) Oximetry (06/10/17 00:30) Oxygen Administration (06/10/17 00:30) Chest, Single Ap (06/10/17 00:30) Sodium Chloride 0.9% Flush (Ns Flush) (06/10/17 00:30) Albuterol-Ipratropium Neb (Duoneb Neb) (06/10/17 00:30) Midazolam Inj (Versed Inj) (06/10/17 00:30) Sodium Chloride 0.9% Flush (Ns Flush) (06/10/17 00:30) Sodium Chlor 0.9% 1000 Ml Inj (Ns 1000 M (06/10/17 00:30) Restraints Non-Violent LEEANNE.Q3H (06/10/17 00:30) Propofol 1000 Mg/100 Ml Inj (Diprivan 10 (06/10/17 00:30) ^ Infusion (06/10/17 00:30) RASS (06/10/17 00:30) Neurological Rass Scale LEEANNE.Q2H (06/10/17 00:30) Shanna-Gastric Tube Insert/Mon (06/10/17 00:30) Urinary Catheter Insert/Apply (06/10/17 00:30) Ed Poc Ultrasound (06/10/17 ) CKMB (06/10/17 00:25) CKMB% (06/10/17 00:25) Neurological Rass Scale Q30MX2,Q2HX4,Q4H (06/10/17 01:59) ^ Infusion (06/10/17 01:59) Fentanyl Inj (Fentanyl Inj) (06/10/17 02:00) Fentanyl Drip (Fentanyl Drip) (06/10/17 02:00) Midazolam Inj (Versed Inj) (06/10/17 02:00) Chest, Single Ap (06/10/17 02:00) Fentanyl Inj (Fentanyl Inj) (06/10/17 02:05) Fentanyl Drip (Fentanyl Drip) (06/10/17 02:05) Admit Order (Ed Use Only) (06/10/17 02:18) Labs Laboratory Tests Test 06/10/17 00:25 06/10/17 00:51 White Blood Count 8.4 TH/MM3 Red Blood Count 3.88 MIL/MM3 Hemoglobin 13.8 GM/DL Hematocrit 39.7 % Mean Corpuscular Volume 102.2 FL Mean Corpuscular Hemoglobin 35.5 PG Mean Corpuscular Hemoglobin Concent 34.8 % Red Cell Distribution Width 12.7 % Platelet Count 225 TH/MM3 Mean Platelet Volume 8.1 FL Neutrophils (%) (Auto) 57.1 % Lymphocytes (%) (Auto) 25.4 % Monocytes (%) (Auto) 6.9 % Eosinophils (%) (Auto) 9.7 % Basophils (%) (Auto) 0.9 % Neutrophils # (Auto) 4.8 TH/MM3 Lymphocytes # (Auto) 2.1 TH/MM3 Monocytes # (Auto) 0.6 TH/MM3 Eosinophils # (Auto) 0.8 TH/MM3 Basophils # (Auto) 0.1 TH/MM3 CBC Comment DIFF FINAL Differential Comment Prothrombin Time 10.0 SEC Prothromb Time International Ratio 1.0 RATIO Activated Partial Thromboplast Time 27.8 SEC Blood Urea Nitrogen 11 MG/DL Creatinine 0.87 MG/DL Random Glucose 122 MG/DL Total Protein 8.4 GM/DL Albumin 3.6 GM/DL Calcium Level 8.7 MG/DL Magnesium Level 1.8 MG/DL Alkaline Phosphatase 62 U/L Aspartate Amino Transf (AST/SGOT) 33 U/L Alanine Aminotransferase (ALT/SGPT) 26 U/L Total Bilirubin 0.3 MG/DL Sodium Level 138 MEQ/L Potassium Level 3.4 MEQ/L Chloride Level 101 MEQ/L Carbon Dioxide Level 27.3 MEQ/L Anion Gap 10 MEQ/L Estimat Glomerular Filtration Rate 65 ML/MIN Total Creatine Kinase 123 U/L Creatine Kinase MB 0.9 NG/ML Troponin I LESS THAN 0.02 NG/ML B-Type Natriuretic Peptide 21 PG/ML Blood Gas Puncture Site RT RADIAL Blood Gas Patient Temperature 98.6 Blood Gas HCO3 24 mmol/L Blood Gas Base Excess -0.3 mmol/L Blood Gas Oxygen Saturation 98 % Arterial Blood pH 7.39 Arterial Blood Partial Pressure CO2 41 mmHg Arterial Blood Partial Pressure O2 290 mmHG Arterial Blood Oxygen Content 19.7 Vol % Arterial Blood Carboxyhemoglobin 1.0 % Arterial Blood Methemoglobin 0.5 % Blood Gas Hemoglobin 13.8 G/DL Oxygen Delivery Device VENTILATOR Blood Gas Ventilator Setting AC/16/500/PEEP5 Blood Gas Inspired Oxygen 50 % [facility] Medical Decision Making Medical Screen Exam Complete: Yes Emergency Medical Condition: Yes Medical Record Reviewed: Yes Interpretation(s) Last Impressions Chest X-Ray 06/10/17 0200 Signed Impressions: Service Date/Time: Saturday, June 10, 2017 02:13 - CONCLUSION: Right internal jugular central line in good position. Tano Higgins MD Chest X-Ray 06/10/17 0030 Signed Impressions: Service Date/Time: Saturday, June 10, 2017 01:03 - CONCLUSION: 1. ET tube in good position. 2. NG tube in the upper stomach. This could be advanced. 3. The lungs are clear. Tano Higgins MD Differential Diagnosis Asthma exacerbation with respiratory failure, versus acute allergic reaction, versus COPD exacerbation, versus epiglottitis Narrative Course During the course of the patients emergency department visit, the patient was placed on a mechanical engineering technician with oximetry and frequent blood pressure monitoring. The patient had IV access obtained and blood work sent for analysis. The patient was placed on a ventilator after confirmation of tube placement in the airway was done by me. The patient will have an ABG done. A chest x-ray will be done. A Prabhakar catheter will be placed to gravity. An OG tube will be placed to low intermittent suction. The patient had an ECG done on arrival that shows a sinus rhythm with a sinus arrhythmia, heart rate of 91, QRS duration 86 ms, QTC [address] segment elevation or depression, T waves are inverted in V1. The patient was initially provided DuoNeb nebs 3. The patients laboratory studies were reviewed and remarkable for CBC is remarkable for white count of 8.4, hemoglobin 13.8, platelets 225 with 9.7 eosinophils. CMP is remarkable for potassium of 3.4, glucose 122, initial set of cardiac enzymes within normal limits, BNP 21, PTT 10, PTT 27.8, urinalysis is unremarkable. ABG on the ventilator reveals a PO2 of 290, pH 7.39, PCO2 41, bicarbonate 24, the patient's FiO2 was decreased from 50% down to 35%. Radiology studies were reviewed and remarkable for an initial chest x-ray shows an endotracheal tube in good position, NG tube in the upper stomach this could be advanced. The lungs are clear. Chest x-ray post internal jugular central line access placed by me reveals I J good position. The patient was maxed out on her propofol for sedation. The patient was given additional Versed boluses initially well additional IV access was placed with a central line. The patient was then started on a fentanyl drip for further sedation on the ventilator. The patients results were discussed with the patient, including the plan of care. I explained that further testing and/ or monitoring is indicated based on the patients history, examination, and/ or laboratory findings. Therefore, I recommended admission for additional evaluation. The patient expressed understanding and was agreeable with this plan. The patient was admitted to the hospital in critical condition and sent to a bed under the care of the aircraft instrument repairer service. Critical Care Narrative Aggregate critical care time was 35 minutes. Time to perform other separately billable procedures was not included in the critical care time. My time did not include minutes spent treating any other patients simultaneously or on activities that did not directly contribute to the patient's treatment. The services I provided to this patient were to treat and/or prevent clinically significant deterioration that could result in: Hypoxic brain injury, versus I provided critical care services requiring my management, as noted below: Chart data review, documentation time, medication orders and management, vital sign assessments/reviewing monitor data, ordering and reviewing lab tests, ordering and interpreting/reviewing x-rays and diagnostic studies, care of the patient and discussion of the patient with the admitting physicians. Procedures Procedure Narrative CENTRAL VENOUS LINE: The site was prepped with chlorhexidine and sterilely draped. It was infiltrated with 1% lidocaine plain. [id number] ultrasound was used to assist with right and some of the needle into the vein. The deep vein was cannulated using normal Seldinger technique. A triple lumen central line was placed in the right internal jugular vein site and secured with simple interrupted suture. The site was sterilely dressed. The patient tolerated the procedure well. A [id number] ultrasound was done of the patient's belongings to evaluate for underlying pneumothorax, the patient had bilateral lung sliding noted. Pneumothorax was ruled out. Physician Communication Physician Communication The patient's case including history, pertinent physical examination findings, and laboratory studies were discussed with Dr. Aparicio. It was agreed that the patient would be admitted to the aircraft instrument repairer service. Diagnosis Primary Impression: Respiratory failure Qualified Codes: J96.00 - Acute respiratory failure, unspecified whether with hypoxia or hypercapnia Additional Impression: Asthma exacerbation Qualified Codes: J45.51 - Severe persistent asthma with (acute) exacerbation Admitting Information Admitting Physician Requests: Admit Portia Benavides MD Jun 10, 2017 00:40
[2017-06-10] MEDS: RESP: ALBUTEROL 2.5 MG/IPRATROPIUM 0.5 MG NEB (SCH) INH ×5 (00:48→16:00)
[2017-06-10 00:53] LABS: AUTOMATED NEUTROPHIL # 4.8 TH/MM3 (1.8-7.7); BASOPHIL # 0.1 TH/MM3 (0-0.2); BASOPHIL % 0.9 % (0.0-2.0); EOSINOPHIL # 0.8 TH/MM3 (0-0.4); EOSINOPHIL % 9.7 % (0.0-4.0); HEMATOCRIT 39.7 % (35.0-46.0); HEMO FLAGS DIFF FINAL; LYMPH % 25.4 % (9.0-44.0); LYMPHOCYTE # 2.1 TH/MM3 (1.0-4.8); MEAN CELL VOLUME 102.2 FL (80.0-100.0); MEAN CORPUSCULAR HEMOGLOBIN 35.5 PG (27.0-34.0); MEAN CORPUSCULAR HGB CONC 34.8 % (32.0-36.0); MONO % 6.9 % (0.0-8.0); NEUT % 57.1 % (16.0-70.0); PLATELET COUNT 225 TH/MM3 (150-450); RED BLOOD COUNT 3.88 MIL/MM3 (4.00-5.30); RED CELL DISTRIBUTION WIDTH 12.7 % (11.6-17.2); WHITE BLOOD COUNT 8.4 TH/MM3 (4.0-11.0)
[2017-06-10 01:00] LABS: BLOOD GAS BASE EXCESS -0.3 mmol/L (-2-2); BLOOD GAS HCO3 24 mmol/L (22-26); BLOOD GAS METHEMOGLOBIN 0.5 % (0-2); BLOOD GAS O2 HGB SATURATION 98 % (90-100); BLOOD GAS OXYGEN CONTENT 19.7 Vol % (12.0-20.0); BLOOD GAS PCO2 41 mmHg (38-42); BLOOD GAS PO2 290 mmHG (61-120); BLOOD GAS TOTAL HGB 13.8 G/DL (12.0-16.0); TEMP CORR TO 98.6
[2017-06-10 01:01] LABS: CRITICAL VALUE NO; DRAW SITE RT RADIAL; FIO2 50 %; NUMBER OF ARTERIAL PUNCTURES 1; OXYGEN DEVICE VENTILATOR; STAT YES; ULNAR PULSE PRESENT; VENT SETTINGS AC/16/500/PEEP5
[2017-06-10 01:02] LABS: APTT (PATIENT) 27.8 SEC (24.3-30.1)
--- NOTE | 2017-06-10 01:18 | RADRPT ---
EXAM DATE/TIME: 06/10/2017 01:03 [facility] COMPARISON: No previous studies available for comparison. INDICATIONS : Intubation, short of breath. MEDICAL HISTORY : None. SURGICAL HISTORY : None. ENCOUNTER: Initial ACUITY: 1 day PAIN SCORE: 0/10 LOCATION: Bilateral chest FINDINGS: ET tube tip is within 3 cm of the chantal in good position. The NG tube tip is in the upper stomach. T he heart size is normal. The lungs are clear. Surgical clips are seen in the right upper quadrant the abdomen. CONCLUSION: 1. ET tube in good position. 2. NG tube in the upper stomach. This could be advanced. 3. The lungs are clear. Tano Higgins MD on June 10, 2017 at 1:13 Board Certified Radiologist. This report was verified electronically.
[2017-06-10 01:21] LABS: ALKALINE PHOSPHATASE 62 U/L (45-117); ALT (GPT) 26 U/L (10-53); ANION GAP 10 MEQ/L (5-15); AST (GOT) 33 U/L (15-37); BICARBONATE 27.3 MEQ/L (21.0-32.0); BLOOD UREA NITROGEN 11 MG/DL (7-18); CHLORIDE 101 MEQ/L (98-107); CREATINE KINASE 123 U/L (26-192); GLOMERULAR FILTRATION RATE 65 ML/MIN (>89); MAGNESIUM 1.8 MG/DL (1.5-2.5); POTASSIUM 3.4 MEQ/L (3.5-5.1); SODIUM (NA) 138 MEQ/L (136-145); TOTAL BILIRUBIN ADULT 0.3 MG/DL (0.2-1.0)
[2017-06-10 01:34] LABS: CKMB 0.9 NG/ML (0.5-3.6)
[2017-06-10] MEDS ORDERED: MIDAZOLAM HCL 5 MG/5 ML VIAL IV PUSH ONE (02:00)
[2017-06-10] MEDS ORDERED: fentaNYL DRIP 250 ML IV PRN ×2 (02:00→03:45)
[2017-06-10] MEDS ORDERED: fentaNYL DRIP 250 ML ONE (02:05)
--- NOTE | 2017-06-10 02:45 | RADRPT ---
EXAM DATE/TIME: 06/10/2017 02:13 [facility] COMPARISON: CHEST SINGLE AP, June 10, 2017, 1:03. INDICATIONS : Right internal jugular central line placement. MEDICAL HISTORY : Hypertension. Cardiovascular disease. SURGICAL HISTORY : Cholecystectomy. Hysterectomy. ENCOUNTER: Subsequent ACUITY: 1 day PAIN SCORE: Non-responsive. LOCATION: Bilateral chest FINDINGS: There is a new right internal jugular central line in place with tip overlying the SVC. A pneumothora x is not seen. ET tube and NG tube are well placed. The heart size is normal. The lungs are clear. CONCLUSION: Right internal jugular central line in good position. Tano Higgins MD on June 10, 2017 at 2:42 Board Certified Radiologist. This report was verified electronically.
[2017-06-10 03:13] LABS: BACTERIA, URINE RARE /hpf; BLOOD, URINE NEG (NEG); COMMENT (UR) CULT NOT INDICATED; CULTURE IF INDICATED CULT NOT INDICATED; GLUCOSE,URINE NEG (NEG); HYALINE CAST, URINE 3 /lpf (RARE); KETONE, URINE NEG (NEG); NITRITE,URINE NEG (NEG); RENAL EPITHELIAL CELLS <1 /hpf; SQUAMOUS EPITHELIAL CELL URINE 1 /hpf (0-5); URINE COLOR LIGHT-YELLOW (YELLW/STRAW)
--- NOTE | 2017-06-10 03:27 | HHI.HP ---
[facility] Service Critical Care Medicine Primary Care Physician Unknown Admission Diagnosis Respiratory Failure, Asthma exacerbation Diagnosis: (1) Hypothyroidism Diagnosis: Secondary (2) Hypertension Diagnosis: Secondary (3) Acute respiratory failure Diagnosis: Principal (4) Hypothyroidism Diagnosis: Secondary (5) HTN (hypertension) Diagnosis: Secondary (6) HLD (hyperlipidemia) Diagnosis: Secondary (7) Asthma attack Diagnosis: Principal Travel History International Travel<30 Days: No Contact w/Intl Traveler <30 Da: No Traveled to Known Affected Are: No History of Present Illness 71-year-old female with past medical history of asthma, hypertension, hyperlipidemia, hypothyroidism who presents to [facility] emergency department via [facility] after the acute onset of shortness of breath. A friend was with her this evening and she reportedly had been drinking alcohol. They were in a home that had pets and she also reports a sensitivity to animals. [facility] was summoned and she was felt to be stridorous. She was given Benadryl 50 mg, epinephrine 0.3 mg IM. There was some transient improvement but then it worsened with alteration in mental status and preparations were made to intubate. She was given Ativan 4 mg IV, etomidate 20 mg IV, Solu-Medrol 125 mill grams IV and was intubated in the field with an 8.0 endotracheal tube. No airway swelling was noted. She has no rash. She has been normotensive to hypertensive. She was wheezing on arrival to the ED and was administered in-line Duoneb x3 in the ED. Further history is limited because she is intubated. Peak pressure is 22. Past Family Social History Allergies: Coded Allergies: acyclovir (Unverified Allergy, Severe, Hives, 02/05/17) nifedipine (Unverified Allergy, Intermediate, SWELLING, 02/05/17) Past Medical History Asthma Hypertension Hyperlipidemia Arthritis Hypothyroidism Past Surgical History Hysterectomy Appendectomy Cholecystectomy Varicose vein surgery Reported Medications Albuterol inhaler every 4 hours as needed Lovastatin 20 mg by mouth daily Lisinopril HCTZ 20 mg/12.5 one by mouth daily Aspirin 81 mg by mouth daily Calcium carbonate/ vitamin D 500/125 one by mouth daily Fluticasone/Salmeterol 1 puff inhaled twice a day Lactobacillus one tab by mouth daily Synthroid 100 g by mouth daily Multivitamin 1 tab by mouth daily Family History Unable to obtain secondary to an intubation Social History Unable to obtain due to intubation. Reportedly she has no history of smoking. She was drinking alcohol this evening. Reportedly she drinks one to 2 drinks daily Physical Exam Vital Signs Vital Signs Date Time Temp Pulse Resp B/P (MAP) Pulse Ox O2 Delivery O2 Flow Rate FiO2 06/10/17 03:05 06/10/17 01:16 99 Ventilator 30 06/10/17 01:16 102 16 163/97 (119) 99 Ventilator 30.00 06/10/17 01:03 100 30 06/10/17 00:48 100 Ventilator 50 06/10/17 00:28 97.7 112 25 211/110 (143) 100 06/10/17 00:25 100 50 Physical Exam GENERAL: Well-nourished, well-developed female who is orotracheally intubated. SKIN: Warm and dry, well perfused. No rash. HEAD: Atraumatic. Normocephalic. EYES: Pupils equal and round, 3 mm reactive to 2 mm bilaterally. No scleral icterus. No injection or drainage. ENT: No nasal bleeding or discharge. Mucous membranes pink and moist. No lip or tongue swelling NECK: Trachea midline. No JVD. CARDIOVASCULAR: Regular rate and rhythm, sinus rhythm on the monitor. No murmurs rubs or gallops. RESPIRATORY: Breathing comfortably on mechanical ventilation. Peak pressure is 22 and she is synchronous with the ventilator on current sedation. There is no wheeze. There are some rhonchi on the left. No Rales GASTROINTESTINAL: Abdomen soft, non-tender, nondistended. Bowel sounds present : Prabhakar in place with yellow urine in bag. MUSCULOSKELETAL: Extremities without clubbing, cyanosis, or edema. No obvious deformities. NEUROLOGICAL: Eyes open to stimulation, moves all extremities. Laboratory Laboratory Tests Test 06/10/17 00:25 06/10/17 00:51 06/10/17 03:00 White Blood Count 8.4 Red Blood Count 3.88 Hemoglobin 13.8 Hematocrit 39.7 Mean Corpuscular Volume 102.2 Mean Corpuscular Hemoglobin 35.5 Mean Corpuscular Hemoglobin Concent 34.8 Red Cell Distribution Width 12.7 Platelet Count 225 Mean Platelet Volume 8.1 Neutrophils (%) (Auto) 57.1 Lymphocytes (%) (Auto) 25.4 Monocytes (%) (Auto) 6.9 Eosinophils (%) (Auto) 9.7 Basophils (%) (Auto) 0.9 Neutrophils # (Auto) 4.8 Lymphocytes # (Auto) 2.1 Monocytes # (Auto) 0.6 Eosinophils # (Auto) 0.8 Basophils # (Auto) 0.1 CBC Comment DIFF FINAL Differential Comment Prothrombin Time 10.0 Prothromb Time International Ratio 1.0 Activated Partial Thromboplast Time 27.8 Blood Urea Nitrogen 11 Creatinine 0.87 Random Glucose 122 Total Protein 8.4 Albumin 3.6 Calcium Level 8.7 Magnesium Level 1.8 Alkaline Phosphatase 62 Aspartate Amino Transf (AST/SGOT) 33 Alanine Aminotransferase (ALT/SGPT) 26 Total Bilirubin 0.3 Sodium Level 138 Potassium Level 3.4 Chloride Level 101 Carbon Dioxide Level 27.3 Anion Gap 10 Estimat Glomerular Filtration Rate 65 Total Creatine Kinase 123 Creatine Kinase MB 0.9 Troponin I LESS THAN 0.02 B-Type Natriuretic Peptide 21 Blood Gas Puncture Site RT RADIAL Blood Gas Patient Temperature 98.6 Blood Gas HCO3 24 Blood Gas Base Excess -0.3 Blood Gas Oxygen Saturation 98 Arterial Blood pH 7.39 Arterial Blood Partial Pressure CO2 41 Arterial Blood Partial Pressure O2 290 Arterial Blood Oxygen Content 19.7 Arterial Blood Carboxyhemoglobin 1.0 Arterial Blood Methemoglobin 0.5 Blood Gas Hemoglobin 13.8 Oxygen Delivery Device VENTILATOR Blood Gas Ventilator Setting AC/16/500/PEEP5 Blood Gas Inspired Oxygen 50 Result Diagram: 06/10/172406/10/1724 Caprini VTE Risk Assessment Caprini VTE Risk Assessment: Mod/High Risk (score >= 2) Caprini Risk Assessment Model Point Value = 1 Point Value = 2 Point Value = 3 Point Value = 5 Age 41-60 Minor surgery BMI > 25 kg/m2 Swollen legs Varicose veins or History of unexplained or recurrent spontaneous Oral contraceptives or hormone replacement Sepsis (< 1 month) Serious lung disease, including pneumonia (< 1 month) Abnormal pulmonary function Acute myocardial infarction Congestive heart failure (< 1 month) History of inflammatory bowel disease Medical patient at bed rest Age 61-74 Arthroscopic surgery Major open surgery (> 45 min) Laparoscopic surgery (> 45 min) Malignancy Confined to bed (> 72 hours) Immobilizing plaster cast Central venous access Age >= 75 History of VTE Family history of VTE Factor V Leiden Prothrombin [id number] Lupus anticoagulant Anticardiolipin antibodies Elevated serum homocysteine Heparin-induced thrombocytopenia Other congenital or acquired thrombophilia Stroke (< 1 month) Elective arthroplasty Hip, pelvis, or leg fracture Acute spinal cord injury (< 1 month) Prophylaxis Regimen Total Risk Factor Score Risk Level Prophylaxis Regimen 0-1 Low Early ambulation 2 Moderate Order ONE of the following: *Sequential Compression Device (SCD) *Heparin 5000 units SQ BID 3-4 Higher Order ONE of the following medications: *Heparin 5000 units SQ TID *Enoxaparin/Lovenox 40 mg SQ daily (WT < 150 kg, CrCl > 30 mL/min) *Enoxaparin/Lovenox 30 mg SQ daily (WT < 150 kg, CrCl > 10-29 mL/min) *Enoxaparin/Lovenox 30 mg SQ BID (WT < 150 kg, CrCl > 30 mL/min) AND/OR *Sequential Compression Device (SCD) 5 or more Highest Order ONE of the following medications: *Heparin 5000 units SQ TID (Preferred with Epidurals) *Enoxaparin/Lovenox 40 mg SQ daily (WT < 150 kg, CrCl > 30 mL/min) *Enoxaparin/Lovenox 30 mg SQ daily (WT < 150 kg, CrCl > 10-29 mL/min) *Enoxaparin/Lovenox 30 mg SQ BID (WT < 150 kg, CrCl > 30 mL/min) AND *Sequential Compression Device (SCD) Assessment and Plan Problem List: (1) HLD (hyperlipidemia) ICD Code: E78.5 - Hyperlipidemia, unspecified Status: Chronic (2) Asthma attack ICD Code: J45.901 - Unspecified asthma with (acute) exacerbation Status: Acute (3) Acute respiratory failure ICD Code: J96.00 - Acute respiratory failure, unspecified whether with hypoxia or hypercapnia Status: Acute (4) Hypothyroidism ICD Code: E03.9 - Hypothyroidism, unspecified Status: Chronic (5) HTN (hypertension) ICD Code: I10 - Essential (primary) hypertension Status: Chronic Assessment and Plan NEURO: Propofol for sedation. Target RASS -2 Daily sedation vacation RESP: Acute respiratory failure Acute asthma exacerbation Intubated in the field by EMS 06/10/17. No airway edema. 8.0 ETT. Ventilator bundle DuoNeb every 4 hours. Albuterol every 2 hours as needed. Solumedrol 40 mg IV every 6 hours. Spontaneous breathing trial later this morning. Received Epi 0.3 mg IM in the field due to stridor. Currently does not appear to have anaphylaxis. Presentation most consistent with bronchospasm/ acute asthma exacerbation. No airway swelling (per [facility]), no tongue/lip/facial swelling/rash. CV: Hypertension Hyperlipidemia Check EKG Continue statin Continue Lisinopril/HCTZ 20/12.5 po daily. GI: OG tube to LIWS. Initiate enteral tube feeds if not extubating later today. MVI daily FEN/RENAL: Prabhakar in place. Monitor intake and output. Monitor electrolytes. Replace electrolytes as indicated per ICU electrolyte replacement protocol. ID: No leukocytosis or fever. Chest x-ray is clear. Monitor for signs and symptoms of infection. HEME: No acute hematologic issues ENDO: Hypothyroidism Continue Synthroid 100 g by mouth daily PROPH: Lovenox 40 mg subcutaneous daily for DVT prophylaxis. Famotidine 20 g IV every 12 hours for stress ulcer prophylaxis. ACCESS: Right IJ central venous line placed 06/10 by ED physician. Has an additional peripheral IV Full code Level III H&P Problem Qualifiers (1) Acute respiratory failure: Qualified Codes: J96.01 - Acute respiratory failure with hypoxia (2) HTN (hypertension): Qualified Codes: I10 - Essential (primary) hypertension (3) Asthma attack: Roro Aparicio MD Jun 10, 2017 03:27
[2017-06-10] MEDS ORDERED: BISACODYL 10 MG SUPP RECTAL PRN (03:30)
[2017-06-10] MEDS ORDERED: SODIUM CHLORIDE 0.9% FLUSH 10 ML FLUSH IV FLUSH PRN (03:30)
[2017-06-10] MEDS ORDERED: SENNOSIDES 8.6 MG TAB PO PRN (03:30)
[2017-06-10] MEDS ORDERED: ACETAMINOPHEN 325 MG TAB PO PRN (03:30)
[2017-06-10] MEDS ORDERED: LACTULOSE SYRUP 20 GM/30 ML CUP PO PRN (03:30)
[2017-06-10] MEDS ORDERED: MAGNESIUM HYDROXIDE SUSP 30 ML CUP PO PRN (03:30)
[2017-06-10] MEDS ORDERED: CHLORHEXIDINE GLUCONATE 2 % 1 PACK (2 CLOTHS) TOP PRN (03:30)
[2017-06-10] MEDS ORDERED: MAGNESIUM SULFATE 1 GM PREMIX 100 ML IV ONE (03:30)
[2017-06-10] MEDS ORDERED: MISCELLANEOUS NURSING INFORMATION XX SCH (03:30)
[2017-06-10] MEDS ORDERED: RESP: ALBUTEROL 2.5 MG/3 ML NEB (PRN) INH (03:30)
[2017-06-10] MEDS ORDERED: ONDANSETRON HCL 4 MG/2 ML VIAL IV PUSH PRN (03:30)
[2017-06-10] MEDS ORDERED: MAGNESIUM SULFATE INJ 2 GM in SODIUM CHLORIDE 0.9% INJ 96 ML IV PRN (03:45)
[2017-06-10] MEDS ORDERED: POTASSIUM CHLOR 40 MEQ PREMIX 100 ML IV PRN ×2 (03:45)
[2017-06-10] MEDS ORDERED: MAGNESIUM SULFATE INJ 4 GM in SODIUM CHLORIDE 0.9% INJ 92 ML IV PRN (03:45)
[2017-06-10] MEDS ORDERED: hydrALAZINE HCL 20 MG/ML VIAL IV PUSH PRN (03:45)
[2017-06-10] MEDS ORDERED: POTASSIUM PHOSPHATE INJ 30 MMOL in SODIUM CHLOR 0.9% 250 ML INJ 250 ML IV PRN (03:45)
[2017-06-10] MEDS ORDERED: POTASSIUM PHOSPHATE MONOBASIC 500 MG TAB PO PRN (03:45)
[2017-06-10] MEDS ORDERED: POTASSIUM PHOSPHATE MONOBASIC 500 MG TAB PO/TUBE PRN (03:45)
[2017-06-10] MEDS ORDERED: SODIUM PHOSPHATE INJ 30 MMOL in SODIUM CHLOR 0.9% 250 ML INJ 240 ML IV PRN (03:45)
[2017-06-10] MEDS ORDERED: POTASSIUM CHLOR 20 MEQ PREMIX 100 ML IV PRN ×2 (03:45)
[2017-06-10] MEDS ORDERED: MAGNESIUM OXIDE 400 MG TAB PO PRN (03:45)
[2017-06-10] MEDS ORDERED: POTASSIUM CHLORIDE 25 MEQ EFFERVESCENT TAB PO PRN (03:45)
[2017-06-10] MEDS ORDERED: CHLORHEXIDINE GLUCONATE 2 % 1 PACK (2 CLOTHS) TOP SCH (04:00)
[2017-06-10] MEDS: NS + KCL 20 MEQ INJ 1,000 ML IV SCH ×2 (04:04→13:07)
[2017-06-10] MEDS: methylPREDNISolone SOD SUCC 40 MG/1 ML VIAL IV PUSH SCH ×2 (05:14→13:06)
[2017-06-10] MEDS ORDERED: LEVOTHYROXINE SODIUM 100 MCG TAB PO SCH (06:00)
[2017-06-10] MEDS ORDERED: CHLORHEXIDINE 0.12% (ORAL KIT) 15 ML CUP MT SCH (08:00)
[2017-06-10] MEDS: DOCUSATE SODIUM 50 MG/SENNA 8.6 MG TAB PO SCH ×2 (08:49→08:59)
[2017-06-10] MEDS: MULTIVITAMINS/MINERALS THERAPEUTIC TAB PO SCH ×2 (08:49→09:00)
[2017-06-10] MEDS: LACTOBACILLUS ACIDOPHILUS TAB PO SCH ×2 (08:49→08:59)
[2017-06-10] MEDS: PRAVASTATIN SOD 20 MG TAB PO SCH ×2 (08:49→09:00)
[2017-06-10] MEDS: ASPIRIN EC 81 MG TABEC PO SCH ×2 (08:50→08:59)
[2017-06-10] MEDS ORDERED: FAMOTIDINE 20 MG/2 ML VIAL IV PUSH SCH (09:00)
[2017-06-10] MEDS ORDERED: NON-FORMULARY DRUG (Lisinopril-Hctz 1 TAB) PO SCH (09:00)
[2017-06-10] MEDS ORDERED: HYDROCHLOROTHIAZIDE 25 MG TAB PO SCH (09:00)
[2017-06-10] MEDS ORDERED: LACTOBACILLUS ACIDOPHILUS CHEW SCH (09:00)
[2017-06-10] MEDS ORDERED: ENOXAPARIN SODIUM 40 MG/0.4 ML SYRINGE SQ SCH (09:00)
[2017-06-10] MEDS ORDERED: LISINOPRIL 20 MG TAB PO SCH (09:00)
[2017-06-10] MEDS ORDERED: SODIUM CHLORIDE 0.9% FLUSH 10 ML FLUSH IV FLUSH SCH (09:00)
--- NOTE | 2017-06-10 16:56 | HHI.DS ---
Discharge Summary Admission Date Jun 10, 2017 at 02:21 Discharge Date: Jun 10, 2017 Admitting Diagnosis Respiratory Failure, Asthma exacerbation (1) Acute respiratory failure ICD Code: J96.00 - Acute respiratory failure, unspecified whether with hypoxia or hypercapnia Diagnosis: Principal Status: Acute (2) Asthma attack ICD Code: J45.901 - Unspecified asthma with (acute) exacerbation Diagnosis: Principal Status: Acute (3) Hypothyroidism ICD Code: E03.9 - Hypothyroidism, unspecified Diagnosis: Secondary Status: Acute (4) Hypertension ICD Code: I10 - Essential (primary) hypertension Diagnosis: Secondary Status: Chronic (5) HTN (hypertension) ICD Code: I10 - Essential (primary) hypertension Diagnosis: Secondary Status: Chronic (6) HLD (hyperlipidemia) ICD Code: E78.5 - Hyperlipidemia, unspecified Diagnosis: Secondary Status: Chronic Brief History 71-year-old female with past medical history of asthma, hypertension, hyperlipidemia, hypothyroidism who presents to [facility] emergency department via [facility] after the acute onset of shortness of breath. A friend was with her this evening and she reportedly had been drinking alcohol. They were in a home that had pets and she also reports a sensitivity to animals. [facility] was summoned and she was felt to be stridorous. She was given Benadryl 50 mg, epinephrine 0.3 mg IM. There was some transient improvement but then it worsened with alteration in mental status and preparations were made to intubate. She was given Ativan 4 mg IV, etomidate 20 mg IV, Solu-Medrol 125 mill grams IV and was intubated in the field with an 8.0 endotracheal tube. No airway swelling was noted. She has no rash. She has been normotensive to hypertensive. She was wheezing on arrival to the ED and was administered in-line Duoneb x3 in the ED. Further history is limited because she is intubated. Peak pressure is 22. CBC/BMP: 06/10/17 0025 06/10/17 0025 Significant Findings Laboratory Tests Test 06/10/17 00:25 06/10/17 00:51 06/10/17 03:00 06/10/17 03:35 Red Blood Count 3.88 MIL/MM3 (4.00-5.30) Mean Corpuscular Volume 102.2 FL (80.0-100.0) Mean Corpuscular Hemoglobin 35.5 PG (27.0-34.0) Eosinophils (%) (Auto) 9.7 % (0.0-4.0) Eosinophils # (Auto) 0.8 TH/MM3 (0-0.4) Random Glucose 122 MG/DL (74-106) Total Protein 8.4 GM/DL (6.4-8.2) Potassium Level 3.4 MEQ/L (3.5-5.1) Estimat Glomerular Filtration Rate 65 ML/MIN (>89) Troponin I LESS THAN 0.02 NG/ML Arterial Blood Partial Pressure O2 290 mmHG (61-120) Urine Leukocyte Esterase TRACE (NEG) Urine Bacteria RARE /hpf (NONE) Imaging CXR_ clear PE at Discharge Lungs clear. Breathing comfortably. No wheezes. Hospital Course Responded to steroids and bronchodilators. Extubated easily in early a.m. States she has her medicine at home. Home with her good friend. Pt Condition on Discharge: Good Discharge Disposition: Discharge Home Discharge Instructions DIET: Follow Instructions for: As Tolerated, No Restrictions Activities you can perform: Regular-No Restrictions Other Activity Instructions: Home with good friend. Abelardo Cardona MD Jun 10, 2017 16:56
--- NOTE | 2017-06-10 17:08 | EKG ---
Date Performed: 06/10/2017 Time Performed: 02:30:36 PTAGE: 71 years EKG: Sinus rhythm WITH SINUS ARRHYTHMIA Since previous tracing, no significant change noted NORMAL ECG PREVIOUS TRACING : 07/16/2016 19.09 DOCTOR: Landen Ayon Interpretating Date/Time 06/10/2017 17:08:17
--- NOTE | 2017-06-10 17:11 | EKG ---
Date Performed: 06/10/2017 Time Performed: 07:17:06 PTAGE: 71 years EKG: Sinus rhythm Since previous tracing, no significant change noted NORMAL ECG PREVIOUS TRACING : 06/10/2017 02.30 DOCTOR: Landen Ayon Interpretating Date/Time 06/10/2017 17:08:59
== END 2017-06-10 17:12 | disposition home or self-care (01) | DRG 208 ==
LOC: NEPE 00:24 → NEDA 02:21 → N03A 03:18
PROVIDERS: ADMIT Emergency Medicine; ATTEND Emergency Medicine
PROC: 5A1935Z Respiratory Ventilation, Less than 24 Consecutive Hours (ICD-10-PCS; principal; 2017-06-10)
PROC: 02HV33Z Insertion of Infusion Device into Superior Vena Cava, Percutaneous Approach (ICD-10-PCS; 2017-06-10)
PROC: B548ZZA Ultrasonography of Superior Vena Cava, Guidance (ICD-10-PCS; 2017-06-10)
DX: J96.01 Acute respiratory failure with hypoxia (principal); J45.901 Unspecified asthma with (acute) exacerbation; I10 Essential (primary) hypertension; E03.9 Hypothyroidism, unspecified; E78.5 Hyperlipidemia, unspecified; M19.90 Unspecified osteoarthritis, unspecified site; Z72.89 Other problems related to lifestyle; Z91.048 Other nonmedicinal substance allergy status
CPT/HCPCS: 36556; 36600; 43753; 51702; 71010; 80053; 81001; 82550; 82552; 82805; 83735; 83880; 84484; 85025; 85610; 85730; 87641; 93005; 94002; 94640; 94664; 96365; 96375; J1650; J2250; J2920; J3010; J3475; J3480; J7030